=== PATIENT | male | born 1960 | race Caucasian/White ===

== ENCOUNTER 2021-04-19 15:49 | Inpatient (IN) | payer BC, SELFPAY ==
[2021-04-19] VITALS (33 sets, daily range): BP systolic 100–125; BP diastolic 60–82; PULSE 67–85; RESP 10–21; TEMP 36.4–36.8; O2SAT 92–100; BMI 32.1
--- NOTE | ~2021-04-19 | XR_ITS ---
XR chest 2V DATE: 04/19/2021 16:22 INDICATION: Generalized chest pain. History of atrial fibrillation. TECHNIQUE: PA and lateral views COMPARISON: None FINDINGS: Normal heart size. No hilar or mediastinal enlargement. No pulmonary infiltrate or consolid ation, pleural effusion or pulmonary congestion or pneumothorax. Mild degenerative spurring of the thoracic spine. IMPRESSION: No active cardiopulmonary disease Reviewed, dictated and finalized at location A.
--- NOTE | 2021-04-19 16:04 | ECG_ITS ---
Measurements Intervals [place] Rate: 72 P: 37 [place]: 172 QRS: -43 QRSD: 98 T: 90 QT: 379 QTc: 415 Interpretive Statements SINUS RHYTHM LEFT AXIS DEVIATION BORDERLINE ST-T WAVE ABNORMALITY- ANT/HIGH LAT LEADS BASELINE ARTIFACT- I, II, III, AVR, AVL, AVF, V2-V6 BORDERLINE ECG Electronically Signed On 04-19-2021 18:44:38 CDT by Manpreet Sorenson D.O.
[2021-04-19 16:15] LABS: Basophils Percent Auto 0.3 % (0.2-1.2); Eosinophils Percent Auto 0.3 % (0-4.4); Hematocrit 50.6 % (42.0-52.0); Hemoglobin 17.2 g/dL (14.0-18.0); Immature Granulocyte Absolute 0.11 K/mm3 (0.00-0.031); Immature Granulocyte Percent A 0.8 % (0-0.5); Lymphocytes Absolute Auto 1.74 K/mm3 (0.9-3.2); Lymphocytes Percent Auto 11.9 % (18.3-44.2); Mean Corpuscular Hemoglobin 30.2 pg (26-34); Mean Corpuscular Volume 88.8 fl (80-100); Mean Platelet Volume 9.9 fl (7.4-10.4); Monocytes Absolute Auto 1.2 K/mm3 (0.1-0.6); Monocytes Percent Auto 8.2 % (2.6-8.5); Neutrophils Absolute Auto 11.5 K/mm3 (1.3-6.7); Neutrophils Percent Auto 78.5 % (45.5-73.1); Platelet Count Result 346 k/mm3 (150-375); Red Cell Distribution Width 13.3 % (11.5-14.5); White Blood Count 14.6 K/mm3 (4.5-10.0)
[2021-04-19 16:25] LABS: Anion Gap 8 mmol/L (8-16); Blood Urea Nitrogen 13 mg/dL (9-20); Calcium 9.6 mg/dL (8.4-10.2); Carbon Dioxide 30 mmol/L (22-30); Chloride 98 mmol/L (98-107); Estimated Glomerular Filt Rate > 60; Glucose 190 mg/dL (75-110); Potassium 4.5 mmol/L (3.4-5.0); Sodium 136 mmol/L (137-145)
[2021-04-19 16:30] LABS: Prothrombin Time 13.4 Seconds (11.1-14.7)
[2021-04-19 16:31] LABS: Partial Thromboplastin Time 31.1 SECONDS (22.3-36.8)
[2021-04-19] MEDS: SODIUM CHLORIDE 0.9% IV 1,000 ML 150 ML IV CONT (16:31)
[2021-04-19] MEDS: NITROGLYCERIN SL 0.4 MG TABLET SUBLINGUAL (16:31)
[2021-04-19] MEDS: ASPIRIN 81 MG CHEWABLE TABLET 324 MG PO (16:31)
[2021-04-19] MEDS: ONDANSETRON INJ 4 MG/2 ML VIAL IV PUSH ×2 (17:07→20:30)
[2021-04-19] MEDS: MORPHINE SULFATE (*CRX) 4 MG/ML INJ IV PUSH ×2 (17:07→20:32)
--- NOTE | 2021-04-19 17:13 | ECG_ITS ---
Measurements Intervals [place] Rate: 74 P: 35 [place]: 168 QRS: -58 QRSD: 93 T: 56 QT: 382 QTc: 426 Interpretive Statements SINUS RHYTHM LEFT ANTERIOR FASCICULAR BLOCK BORDERLINE ST-T WAVE ABNORMALITY- ANTERIOR LEADS BASELINE ARTIFACT- II, III, V2 ABNORMAL ECG Electronically Signed On 04-19-2021 18:46:07 CDT by Manpreet Sorenson D.O.
--- NOTE | 2021-04-19 17:42 | ED.CHESTPAIN ---
HPI - Chest Pain General Chief Complaint: Chest Pain Stated Complaint: achy, chest pressure Time Seen by Provider: 04/19/21 16:16 Source: patient Mode of arrival: ambulatory Limitations: no limitations History of Present Illness HPI narrative: 61-year-old with a history of A. fib presently not on any anticoagulant here with complaints of chest pain for past 4 days. Patient states I have a car sitting on my chest . He denies any shortness of breath, nausea or vomiting or diaphoresis with the pain. He denies any previous coronary artery disease. She states that he had a stress test approximately 4 years ago at [facility]. 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 MD complaint: chest heaviness Onset (ago): day(s) (4) Timing of current episode: constant Prior episodes: No Onset: during rest Pain location: substernal Pain radiation: none Quality: heaviness Relieving factors: nothing Exacerbating factors: nothing Risk Factors Coronary artery disease risk factors: none Thoracic aortic dissection risk factors: none Related Data Allergies Allergy/AdvReac Type Severity Reaction Status Date / Time No Known Allergies Allergy Unverified 11/23/13 08:59 Review of Systems Review of Systems: All systems reviewed & are unremarkable except as noted in HPI and below Constitutional: Constitutional: Reports no additional constitutional complaints Eyes: Eyes: Reports no additional eye complaints ENT: Reports system reviewed and no additional complaints, except as documented Cardiovascular: Cardiovascular: Reports as per HPI Respiratory: Respiratory: Reports no additional respiratory complaints Gastrointestinal: Gastrointestinal: Reports no additional gastrointestinal complaints Musculoskeletal: Musculoskeletal: Reports no additional musculoskeletal complaints Neurologic: Reports system reviewed and no additional complaints, except as documented Exam Narrative: Exam Narrative: GENERAL: Well-appearing, well-nourished, and in no acute distress. HEAD: Normocephalic, atraumatic. EYES: PERRLA and EOMI NECK: Supple. CHEST: Clear to auscultation. No respiratory distress. HEART: Regular rate and rhythm. No murmur heard. Normal peripheral pulses. ABDOMEN: Soft, nontender, nondistended, normal active bowel sounds. EXTREMITIES: Normal range of motion. No edema. SKIN: Warm, dry, no rash. NEURO: No focal deficits. Alert and oriented x3. PSYCH: Normal mood and affect. Course Course Emergency Course: Patient feeling much better after 3 nitro and morphine. I did inform him about his lab work and EKG findings patient was initially reluctant to get admitted after the results patient agreed to stay. I discussed with Dr. Lam agreed to consult the patient. Vital Signs Vital signs: Vital Signs Pulse Rate 71 04/19/21 16:06 Respiratory Rate 12 04/19/21 16:06 Pulse Oximetry 97 04/19/21 16:06 Temperature 36.4 C 04/19/21 16:25 Pulse Rate 75 04/19/21 17:34 Respiratory Rate 20 04/19/21 17:34 Blood Pressure 100/60 04/19/21 17:34 Pulse Oximetry 96 04/19/21 17:34 MDM - Chest Pain Lab Data Result diagrams: 04/19/21 16:09 04/19/21 16:09 Labs: Lab Results 04/19/21 04/19/21 04/19/21 Range/Units 16:09 16:09 16:09 WBC 14.6 H (4.5-10.0) K/mm3 RBC 5.70 (4.6-6.20) M/mm3 Hgb 17.2 (14.0-18.0) g/dL Hct 50.6 (42.0-52.0) % MCV 88.8 (80-100) fl MCH 30.2 (26-34) pg MCHC 34.0 (32-36) g/dl RDW 13.3 (11.5-14.5) % Plt Count 346 (150-375) k/mm3 MPV 9.9 (7.4-10.4) fl Immature Gran % (Auto) 0.8 H (0-0.5) % Neut % (Auto) 78.5 H (45.5-73.1) % Lymph % (Auto) 11.9 L (18.3-44.2) % [place] % (Auto) 8.2 (2.6-8.5) % Eos % (Auto) 0.3 (0-4.4) % Baso % (Auto) 0.3 (0.2-1.2) % Lymph # (Auto) 1.74 (0.9-3.2) K/mm3 [place] # (Auto) 1.2 H (0.1-0.6) K/mm3 Eos # (Auto) 0.0 (0-0.3) K/mm3 Baso
[2021-04-19] MEDS: ENOXAPARIN 100 MG/ML SYRINGE 110 MG SUB-Q (18:06)
[2021-04-19] MEDS: METOPROLOL TARTRATE 50 MG TAB PO (18:16)
[2021-04-19] MEDS: NITROGLYCERIN OINTMENT 1 INCH DOSE TRANSDERM (18:16)
--- NOTE | 2021-04-19 19:50 | ADMGEN ---
This patient, Angel Lopez, was admitted to IMU Room 211-01. Patient/family oriented to hospital policies and general routines including ID bracelet, bed and alarms, visiting hours, pain management, procedures, bathroom and other care routines, personal items, smoking policy, room service/diet, and visiting hours. Information on how to activate the Rapid Response Team has been discussed. Patient/Family are encouraged to report perceived risks to care and to ask questions if they do not understand what they are told or what they should do.
[2021-04-19] MEDS: SODIUM CHLORIDE 0.9% IV 1,000 ML 75 ML IV CONT (20:35)
--- NOTE | 2021-04-19 20:46 | PM.IMHP ---
H&P: HPI History of Present Illness Date/Time: 04/19/21 20:46 this is a 61-year-old male patient who stated that he started to have some chest discomfort on night. He said it lasted through the night on into Wednesday and then now in today. The patient stated that he felt this heaviness as if a car was sitting on his chest. The patient stated that he has had chest pain before that is only last about 10 minutes and would come and go but this was pretty persistent and was midsternal. It did not radiate down his arm rope his neck. The patient did not become diaphoretic or nauseated. The patient stated that he has a history of AFib and no longer takes any anticoagulation due to insurance cost of the medication. The patient is in a sinus rhythm but has a left bundle branch block. When I initially saw the patient the ER he was refusing to stay. However since his troponin came back over 17 then he was willing to stay. Patient stated I have a car sitting on on my chest . The patient stated that he had a stress test approximately 4 years ago at [facility]. 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 His baseline troponin was found to be 19.2. Second troponin was 22.3. Cardiology has been consulted and is aware of the 2nd troponin. Was given an aspirin, nitro, Zofran, Lovenox, metoprolol, and morphine in the emergency room. The patient is being admitted to inpatient services on the date of service of 04/19/2021. Chief Complaint: Chest pain Review of Systems Review of Systems: All systems reviewed & are unremarkable except as noted in HPI and below Constitutional: Constitutional: Reports as per HPI and Reports no additional constitutional complaints Eyes: Eyes: Reports as per HPI and Reports no additional eye complaints ENT: Reports system reviewed and no additional complaints, except as documented and Reports Normal hearing present Cardiovascular: Cardiovascular: Reports no additional cardiovascular complaints Respiratory: Respiratory: Reports no additional respiratory complaints and Reports no additional respiratory complaints Gastrointestinal: Gastrointestinal: Reports as per HPI and Reports no additional gastrointestinal complaints Musculoskeletal: Musculoskeletal: Reports no additional musculoskeletal complaints Integumentary/Breasts: Skin/Breast: Reports system reviewed and no additional complaints, except as docu and Reports as per HPI Neurologic: Reports system reviewed and no additional complaints, except as documented, Reports as per HPI and Reports Normal hearing present Psychiatric: Psychiatric: Reports no additional psychiatric complaints and Reports as per HPI Endocrine: Endocrine: Reports no additional endocrine complaints Hematologic/Lymphatic: Hematologic/Lymphatic: Reports no additional hematologic/lymphatic complaints Allergic/Immunologic: Allergic/Immunologic: Reports no additional allergic/immunologic complaints [facility] Past Medical History Medical History (Updated 04/19/21 @ 21:04 by Janet Johnson NP) Atrial fibrillation Pilar cyst Extracted Tobacco abuse Surgical History Surgical History (Updated 04/19/21 @ 20:53 by Janet Johnson NP) History of tracheostomy Family History Family History (Updated 04/19/21 @ 20:54 by Janet Johnson NP) Mother Cancer Father Cancer Malignant neoplasm of prostate Social History Social History (Updated 04/19/21 @ 20:55 by Janet Johnson NP) Social History: The patient continues to smoke a half a pack to a pack a cigarettes a day. 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 He does not use any alcohol marijuana or illicit drugs. The patient is and he has 2 children. Smoking packs per day: 1 Smoking cigarettes per day: 20.0 Years smoked: 50 Smoking pack-years: 50.00 Smoking status: Current every day smoker Tobacco type: ciga
[2021-04-19] MEDS: ROSUVASTATIN 10 MG TABLET PO (20:50)
[2021-04-19] MEDS: FAMOTIDINE 20 MG/2 ML VIAL IV PUSH (20:50)
[2021-04-20] VITALS (17 sets, daily range): BP systolic 105–113; BP diastolic 59–71; PULSE 70–92; RESP 16–20; TEMP 36.3–37; O2SAT 96–97
[2021-04-20] MEDS: NITROGLYCERIN OINTMENT 1 INCH DOSE TRANSDERM ×5 (00:40→23:28)
[2021-04-20] MEDS: ENOXAPARIN 120 MG/0.8 ML SYRINGE 110 MG SUB-Q (06:04)
[2021-04-20 06:41] LABS: Basophils Percent Auto 0.3 % (0.2-1.2); Eosinophils Percent Auto 0.2 % (0-4.4); Hematocrit 45.5 % (42.0-52.0); Hemoglobin 15.2 g/dL (14.0-18.0); Immature Granulocyte Absolute 0.08 K/mm3 (0.00-0.031); Immature Granulocyte Percent A 0.7 % (0-0.5); Lymphocytes Absolute Auto 2.08 K/mm3 (0.9-3.2); Lymphocytes Percent Auto 17.3 % (18.3-44.2); Mean Corpuscular HGB Conc 33.4 g/dl (32-36); Mean Corpuscular Volume 89.7 fl (80-100); Monocytes Absolute Auto 1.4 K/mm3 (0.1-0.6); Monocytes Percent Auto 11.5 % (2.6-8.5); Neutrophils Absolute Auto 8.4 K/mm3 (1.3-6.7); Platelet Count Result 281 k/mm3 (150-375); Red Blood Count 5.07 M/mm3 (4.6-6.20); Red Cell Distribution Width 13.4 % (11.5-14.5)
[2021-04-20 06:45] LABS: Anion Gap 7 mmol/L (8-16); Blood Urea Nitrogen 12 mg/dL (9-20); Calcium 8.5 mg/dL (8.4-10.2); Carbon Dioxide 27 mmol/L (22-30); Chloride 102 mmol/L (98-107); Cholesterol 213 mg/dL (0-200); Estimated CRCL calculation 80 ml/min; Estimated Glomerular Filt Rate > 60; Glucose 160 mg/dL (75-110); HDL Direct 29 mg/dL; Magnesium 1.9 mg/dL (1.6-2.3); Potassium 4.3 mmol/L (3.4-5.0); Sodium 136 mmol/L (137-145); Triglycerides 156 mg/dL (<150)
[2021-04-20 06:56] LABS: LDL Cholesterol Direct 129 mg/dL
[2021-04-20 08:03] LABS: Thyroid Stimulating Hormone Reflex 0.964 uIU/mL (0.465-4.68)
[2021-04-20] MEDS: METOPROLOL SUCCINATE EXT REL 50 MG TABCR PO (08:07)
[2021-04-20] MEDS: ROSUVASTATIN 10 MG TABLET PO (08:07)
[2021-04-20] MEDS: FAMOTIDINE 20 MG/2 ML VIAL IV PUSH ×2 (08:07→20:17)
[2021-04-20] MEDS: SODIUM CHLORIDE 0.9% IV 1,000 ML 75 ML IV CONT ×2 (08:07→20:16)
[2021-04-20] MEDS: ASPIRIN 81 MG CHEWABLE TABLET PO (08:07)
--- NOTE | 2021-04-20 09:05 | PM.IMPN ---
Progress Note: A&P Assessment and Plan (1) Acute non-ST elevation myocardial infarction (NSTEMI): Code(s): I21.4 - Non-ST elevation (NSTEMI) myocardial infarction Status: Acute Assessment and Plan: Continue with subcutaneous Lovenox. Continue to trend tropeolins. Continue with a daily aspirin. The patient was placed on metoprolol. Cardiology has been consulted. Continue with nitroglycerin and morphine. Stable examination at present. Will continue current plan of care and treatment. (2) Tobacco abuse: Code(s): Z72.0 - Tobacco use Status: Chronic Assessment and Plan: I discussed the the importance of smoking cessation and explained I am unable to give him a nicotine patch extension as a cause some basal constriction. We discussed smoking cessation for approximately 5 minutes. Patient agreed and will try to quit smoking. Subjective Date/time seen: 04/20/21 09:05 Patient was seen during the morning rounds today. At present patient denies any chest pain or shortness of breath. No nausea, no vomiting. Mood stable. Review of Systems Review of Systems: All systems reviewed & are unremarkable except as noted in HPI and below Constitutional: Constitutional: Reports as per HPI and Reports no additional constitutional complaints Eyes: Eyes: Reports as per HPI and Reports no additional eye complaints ENT: Reports system reviewed and no additional complaints, except as documented and Reports Normal hearing present Cardiovascular: Cardiovascular: Reports no additional cardiovascular complaints Respiratory: Respiratory: Reports no additional respiratory complaints and Reports no additional respiratory complaints Gastrointestinal: Gastrointestinal: Reports as per HPI and Reports no additional gastrointestinal complaints Musculoskeletal: Musculoskeletal: Reports no additional musculoskeletal complaints Integumentary/Breasts: Skin/Breast: Reports system reviewed and no additional complaints, except as docu and Reports as per HPI Neurologic: Reports system reviewed and no additional complaints, except as documented, Reports as per HPI and Reports Normal hearing present Psychiatric: Psychiatric: Reports no additional psychiatric complaints and Reports as per HPI Endocrine: Endocrine: Reports no additional endocrine complaints Hematologic/Lymphatic: Hematologic/Lymphatic: Reports no additional hematologic/lymphatic complaints Allergic/Immunologic: Allergic/Immunologic: Reports no additional allergic/immunologic complaints Exam Const: General: cooperative, healthy appearing, comfortable, no acute distress, well developed, alert, awake and Physically active Nutritional Appearance: average body habitus and well nourished Orientation/consciousness: oriented to person, oriented to place, oriented to time and patient oriented x3 Limitations: no limitations HENMT: Head: normal to inspection, No palpable skull fracture present, normocephalic and atraumatic Ears: hearing grossly normal bilaterally and external ears normal General nose exam: Normal external nose present and Normal nares present Eyes: General: appearance normal, both eyes and all related structures Alignment and Position: alignment normal Periorbital: periorbital findings normal Eyelids: eyelids normal Conjunctivae: conjunctivae normal Sclera: sclerae normal Cornea: corneas normal Pupils: Equal, round and reactive pupils present EOM: EOMs intact bilaterally Neck: Neck: normal visual inspection, full ROM, no lymphadenopathy, trachea midline and supple Chest: Chest palpation & inspection: normal inspection of the chest Resp: Effort & Inspection: normal respiratory effort Auscultation: clear to auscultation bilaterally Percussion: percussion normal Cardio: Palpation: normal PMI Rate: regular rate Rhythm: regular rhythm Heart sounds: S1 normal heart sound present and S2 normal heart sound present Peripheral pulses: Peripheral pulses 2+
--- NOTE | 2021-04-20 09:28 | PC.NURSE ---
Cardiopulmonary Rehab Services flyer was given to patient in cardiac admission folder.
--- NOTE | 2021-04-20 09:59 | PM.CNCAR ---
Assessment and Plan Additional Plan 61-year-old white male longstanding smoker who presents with evidence of acute myocardial infarction. Patient presented far outside the window of the benefit of going to the label maker emergently last night. He feels stable this morning I have placed him on aspirin, beta-blockers, nitrates statins and anticoagulation with Lovenox. I would recommend proceeding with coronary angiography tomorrow morning to delineate his coronary artery disease and guide recommendations for long-term management. He understands the procedure it has been explained in detail and is agreeable to proceed. I will stop the Lovenox after tonight's dose. Angel Lam MD [facility] History of Present Illness History of Present Illness Consult date/time: 04/20/21 09:59 Consult reason: chest pain Reason For Visit: NSTEMI Narrative: This is a 61-year-old man I am seeing at the request of the hospitalist he was admitted yesterday evening after being seen in the emergency room with a diagnosis of non ST elevation [place]. The patient says that she is not previously been known to have any trouble with coronary artery disease. He did have a history of atrial fibrillation which was treated a number years ago at another hospital. He was not compliant with her medication or follow-up with the food assembler that saw him at that time and does not have any other cardiac history until now. He is in his usual state of what he considers to be good health when on of this past week he started to have chest pain. This started on evening and he describes it as a dull weight like sensation in the center substernal region this heavy weight like pain persisted night through the night all day Wednesday and all day yesterday he finally came in the emergency room to have it evaluated last night. He did not notice any associated diaphoresis nausea vomiting or shortness of breath. His electrocardiogram in the emergency room shows sinus rhythm with anterior ST segment depression his troponin level was significantly elevated at 19 making it obvious that he had sustained a myocardial infarction. I was then consulted on the telephone. It was obvious that the patient was presenting far too late to be considered a candidate for emergency revascularization and he was also a rendered free of pain with nitrates in the emergency department. I am seeing him this morning in the IMU. He is free of any symptoms like this now he just feels like he is ill with a cold this morning. His cardiac rhythm has been fine he has not had any dysrhythmias or complications thus far. Patient does have a longstanding history of cigarette smoking he otherwise denies hypertension diabetes or dyslipidemia. There is no family history of premature ischemic heart disease Review of Systems Constitutional: Constitutional: Reports no additional constitutional complaints Eyes: Eyes: Reports no additional eye complaints ENT: Reports system reviewed and no additional complaints, except as documented Cardiovascular: Cardiovascular: Reports as per HPI Respiratory: Respiratory: Reports no additional respiratory complaints Gastrointestinal: Gastrointestinal: Reports no additional gastrointestinal complaints Musculoskeletal: Musculoskeletal: Reports no additional musculoskeletal complaints Integumentary/Breasts: Skin/Breast: Reports system reviewed and no additional complaints, except as docu Neurologic: Reports system reviewed and no additional complaints, except as documented Endocrine: Endocrine: Reports no additional endocrine complaints Hematologic/Lymphatic: Hematologic/Lymphatic: Reports no additional hematologic/lymphatic complaints Allergic/Immunologic: Allergic/Immunologic: Reports no additional allergic/immunologic complaints PMFSH Past Medical History Medical History (Updated 04/19/21 @ 21:04 by Janet Johnson NP) Atrial fibrillation Pilar cyst Extracted Toba
[2021-04-21] VITALS (33 sets, daily range): BP systolic 103–129; BP diastolic 66–92; PULSE 68–95; RESP 13–23; TEMP 36–36.7; O2SAT 96–100
[2021-04-21] MEDS: ROSUVASTATIN 10 MG TABLET PO (08:30)
[2021-04-21] MEDS: ASPIRIN 81 MG CHEWABLE TABLET PO (08:30)
[2021-04-21] MEDS: FAMOTIDINE 20 MG/2 ML VIAL IV PUSH ×2 (08:30→20:53)
--- NOTE | 2021-04-21 08:35 | WPDMODSED ---
Moderate Sedation Note-Pt Data Patient Data Diagnosis: Non ST-elevation [place] Present Complaint: chest pain Procedure to be performed/Plan: left heart catheterization Allergies Allergy/AdvReac Type Severity Reaction Status Date / Time No Known Allergies Allergy Unverified 11/23/13 08:59 Home Medications Medication Instructions Recorded Confirmed Type aspirin 81 mg PO DAILY 04/19/21 04/19/21 History Current Medications: Active Medications Acetaminophen (Acetaminophen 325 Mg Tablet) 650 mg PO Q4H PRN PRN Reason: Mild Pain (1-3) or Fever Aspirin (Aspirin 81 Mg Chewable Tablet) 81 mg PO DAILY@0800 [facility] Last Admin: 04/21/21 08:30 Dose: 81 mg Documented by: Famotidine (Famotidine 20 Mg/2 Ml Vial) 20 mg IV PUSH Q12HR [facility] Last Admin: 04/21/21 08:30 Dose: 20 mg Documented by: Sodium Chloride (Normal Saline Iv) 1,000 mls @ 75 mls/hr IV CONT .[id number] [facility] Last Admin: 04/20/21 20:16 Dose: 75 mls/hr Documented by: Metoprolol Succinate (Metoprolol Succinate Ext Rel 50 Mg Tabcr) 50 mg PO [facility] Last Admin: 04/20/21 08:07 Dose: 50 mg Documented by: Morphine Sulfate (Morphine Sulfate (*Crx) 4 Mg/Ml Inj) 4 mg IV PUSH Q2H PRN PRN Reason: Pain Rated 7-10 Last Admin: 04/19/21 20:32 Dose: 4 mg Documented by: Nitroglycerin (Nitroglycerin Ointment 1 Inch Dose) 1 inch TRANSDERM Q6HR [facility] Last Admin: 04/21/21 05:54 Dose: Not Given Documented by: Nitroglycerin (Nitroglycerin Sl 0.4 Mg Tablet) 0.4 mg SUBLINGUAL Q5MIN PRN PRN Reason: Chest Pain Ondansetron HCl (Ondansetron Inj 4 Mg/2 Ml Vial) 4 mg IV PUSH Q4H PRN PRN Reason: Nausea Last Admin: 04/19/21 20:30 Dose: 4 mg Documented by: Rosuvastatin Calcium (Rosuvastatin 10 Mg Tablet) [facility] [place] [facility] Admin: 04/21/21 08:30 Dose: 10 mg Documented by: Sedation/Anesthesia: No previous sedation/anesthesia problems (including family history). [facility] Past Medical History Medical History (Updated 04/19/21 @ 21:04 by Janet Johnson NP) Atrial fibrillation Pilar cyst Extracted Tobacco abuse Surgical History Surgical History (Updated 04/19/21 @ 20:53 by Janet Johnson NP) History of tracheostomy Family History Family History (Updated 04/19/21 @ 20:54 by Janet Johnson NP) Mother Cancer Father Cancer Malignant neoplasm of prostate Social History Social History (Updated 04/19/21 @ 20:55 by Janet Jhonson NP) Social History: The patient continues to smoke a half a pack to a pack a cigarettes a day. 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 He does not use any alcohol marijuana or illicit drugs. The patient is and he has 2 children. Smoking packs per day: 1 Smoking cigarettes per day: 20.0 Years smoked: 50 Smoking pack-years: 50.00 Smoking status: Current every day smoker Tobacco type: cigarettes Alcohol intake: former Substance use: never Gender identity (if verbalized by the patient): Male Spiritual care concerns: No Mod Sed Physical Exam Physical Exam Pre Procedural Exam: Normal: Throat, Airway, Lungs, Heart Size, Heart Rate, Heart Rhythm, Neuro Exam and Extremities and Variation: Appearance ( unkempt overweight white male no distress) Hours since solid foods: 12 Hours since liquid intake: 12 Internal Medicine - PN: Obj Da Vital Signs Vital Signs: Vital Signs - 24 hr 04/20/21 09:51 04/20/21 11:58 04/20/21 12:00 Temperature 37.0 C Pulse Rate 74 79 77 Respiratory Rate 18 Blood Pressure 107/63 Pulse Oximetry 97 04/20/21 13:51 04/20/21 15:49 04/20/21 16:00 Temperature 36.7 C Pulse Rate 72 83 70 Respiratory Rate 18 Blood Pressure 113/68 Pulse Oximetry 97 04/20/21 18:00 04/20/21 20:00 04/20/21 22:00 Temperature 36.3 C L Pulse Rate 72 73 82 Respiratory Rate 20 Blood Pressure 110/70 Pulse Oximetry 96 04/21/21 00:00 04/21/21 02:00 04/21/21 04:00 Temperature 36.4 C
--- NOTE | 2021-04-21 10:24 | ECG_ITS ---
Measurements Intervals [place] Rate: 75 P: 50 VT: 182 QRS: -70 QRSD: 97 T: 83 QT: 359 QTc: 401 Interpretive Statements SINUS RHYTHM LEFT ANTERIOR FASCICULAR BLOCK INFERIOR INFARCT, AGE INDETERMINATE BORDERLINE ST-T WAVE ABNORMALITY- ANT/HIGH LAT LEADS ABNORMAL ECG Electronically Signed On 04-21-2021 16:15:28 CDT by Manpreet Sorenson D.O.
--- NOTE | 2021-04-21 10:28 | WPDCARDPROC ---
Cardiac Cath Procedure Note Date of procedure:: 04/21/21 Performing physician:: Angel Lam MD Indication:: non ST-elevation KS Brief clinical history:: this is a 61-year-old man who presented to the hospital at the end of last week a 48 hours after having chest pain and had significantly elevated troponin upon arrival. He became free of symptoms following treatment in the emergency room. No previous history of coronary disease. He is a longstanding smoker. In this setting he is being brought today for angiography. Procedure Procedure performed:: Coronary angiography left ventriculography PCI to the circumflex Sedation/Medication given:: fentanyl 50 mg Versed 2 mg case start time 9:27 a.m. case end time 10:21 a.m. sedation provided by Kenia Hairston RN, trained observer Access site:: right femoral artery Estimated blood loss:: 20-30 cc Procedure note:: patient was brought to the cardiac catheterization lab in the postabsorptive state where the right femoral triangle was prepared and draped in the usual fashion. Anesthesia was provided with 1% lidocaine infiltrated locally. Using the modified Seldinger technique a 5 Guyanese sheath was placed into the femoral artery after this left heart catheterization was carried out. A 5 Guyanese angled pigtail catheter was used to measure left-sided hemodynamics and to injected LV g in the THOMPSON projection. Following this a 5 Guyanese FL4 catheter was used to engage and inject the left coronary artery in multiple projections. A 5 Guyanese JR4 catheter was then used to engage inject the right coronary artery. After this the cineangiograms were reviewed and PCI of the circumflex was recommended and carried out as detailed below. Following PCI the catheters were removed the sheath was sutured into position the patient was maintained on intravenous Angiomax for systemic anticoagulation and intravenous Integrilin was started with intention to infuse this for 18 hours following PCI. 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 Findings:: Hemodynamics: Central aortic pressure was 115 over 58 left ventricle 115/0 end-diastolic 16. No gradient on pullback across the aortic valve. Left ventricle: Left ventricle is normal in size the posterior segment is akinetic the remainder of the LV contracts well global ejection fraction is 45-50%. The left main coronary artery is nicely patent the LAD is a moderate caliber artery extending down to and around the apex. The LAD has proximal moderate atherosclerotic disease in a diffuse fashion bridging over a major diagonal branch. The LAD in this area has about 50-60% stenosis with CARLOS 3 flow in the vessel. There is also moderate 60% stenosis in the diagonal branch. The circumflex is a large caliber vessel. A very proximal OM1 branch is nicely patent. Distal to this the circumflex is 99% occluded with slow CARLOS 1 flow after this segment. This appears to be the culprit for the patient's presentation. The right coronary artery is large in caliber and dominant to the posterior circulation. Right coronary artery has diffuse atherosclerotic plaquing but no flow-limiting disease is identified. Intervention: The left coronary artery was engaged using a 6 Guyanese CLS 3.5 guiding catheter. A 0.14 BMW guidewire was used to traverse the proximal subtotal occlusion of the circumflex after the OM branch. The wire was placed easily into the distal circumflex. This area was then pre-dilated using a 3.0 x 15 mm emerge balloon. Following this there was good CARLOS 3 flow in the remainder of the circumflex there was a huge amount of thrombus that was now visible distal to the high-grade lesion. The balloon was withdrawn and I then used a export thrombectomy extraction catheter and made several passes emptying clot from the vessel a large amount of clot was successfully extracte
[2021-04-21] MEDS: ONDANSETRON INJ 4 MG/2 ML VIAL IV PUSH (11:25)
--- NOTE | 2021-04-21 11:33 | PM.IMPN ---
Progress Note: A&P Assessment and Plan (1) Acute non-ST elevation myocardial infarction (NSTEMI): Code(s): I21.4 - Non-ST elevation (NSTEMI) myocardial infarction Status: Acute Assessment and Plan: Continue with subcutaneous Lovenox. Continue to trend tropeolins. Continue with a daily aspirin. The patient was placed on metoprolol. Cardiology has been consulted. Continue with nitroglycerin and morphine. Stable examination at present. Will continue current plan of care and treatment, scheduled for catheterization today (2) Tobacco abuse: Code(s): Z72.0 - Tobacco use Status: Chronic Assessment and Plan: I discussed the the importance of smoking cessation and explained I am unable to give him a nicotine patch extension as a cause some basal constriction. We discussed smoking cessation for approximately 5 minutes. Patient agreed and will try to quit smoking. 04/21/21: Will continue current plan of care and treatment. Scheduled for cardiac catheterization today Subjective Date/time seen: 04/21/21 11:33 Patient was seen during the morning rounds today. No shortness of breath or chest pain. No abdominal pain, no nausea, no vomiting. Mood stable. Review of Systems Review of Systems: All systems reviewed & are unremarkable except as noted in HPI and below Constitutional: Constitutional: Reports as per HPI and Reports no additional constitutional complaints Eyes: Eyes: Reports as per HPI and Reports no additional eye complaints ENT: Reports system reviewed and no additional complaints, except as documented and Reports Normal hearing present Cardiovascular: Cardiovascular: Reports no additional cardiovascular complaints Respiratory: Respiratory: Reports no additional respiratory complaints and Reports no additional respiratory complaints Gastrointestinal: Gastrointestinal: Reports as per HPI and Reports no additional gastrointestinal complaints Musculoskeletal: Musculoskeletal: Reports no additional musculoskeletal complaints Integumentary/Breasts: Skin/Breast: Reports system reviewed and no additional complaints, except as docu and Reports as per HPI Neurologic: Reports system reviewed and no additional complaints, except as documented, Reports as per HPI and Reports Normal hearing present Psychiatric: Psychiatric: Reports no additional psychiatric complaints and Reports as per HPI Endocrine: Endocrine: Reports no additional endocrine complaints Hematologic/Lymphatic: Hematologic/Lymphatic: Reports no additional hematologic/lymphatic complaints Allergic/Immunologic: Allergic/Immunologic: Reports no additional allergic/immunologic complaints Exam Const: General: cooperative, healthy appearing, comfortable, no acute distress, well developed, alert, awake and Physically active Nutritional Appearance: average body habitus and well nourished Orientation/consciousness: oriented to person, oriented to place, oriented to time and patient oriented x3 Limitations: no limitations HENMT: Head: normal to inspection, No palpable skull fracture present, normocephalic and atraumatic Ears: hearing grossly normal bilaterally and external ears normal General nose exam: Normal external nose present and Normal nares present Eyes: General: appearance normal, both eyes and all related structures Alignment and Position: alignment normal Periorbital: periorbital findings normal Eyelids: eyelids normal Conjunctivae: conjunctivae normal Sclera: sclerae normal Cornea: corneas normal Pupils: Equal, round and reactive pupils present EOM: EOMs intact bilaterally Neck: Neck: normal visual inspection, full ROM, no lymphadenopathy, trachea midline and supple Chest: Chest palpation & inspection: normal inspection of the chest Resp: Effort & Inspection: normal respiratory effort Auscultation: clear to auscultation bilaterally Percussion: percussion normal Cardio: Palpation: normal PMI Rate: regular rate Rhythm
[2021-04-21] MEDS: SODIUM CHLORIDE 0.9% IV 1,000 ML 125 ML IV CONT (13:30)
[2021-04-21] MEDS: EPTIFIBATIDE 0.75 MG/ML 75 MG/100 ML VIAL 17.7 MG IV CONT ×2 (15:30→20:54)
[2021-04-21] MEDS: PHARMACIST COMMUNICATION ORDER 1 EACH XX (16:39)
[2021-04-21] MEDS: TICAGRELOR 90 MG TABLET PO (20:53)
[2021-04-22] VITALS (10 sets, daily range): BP systolic 112–130; BP diastolic 71–79; PULSE 67–97; RESP 18–20; TEMP 36.3–36.6; O2SAT 98–100
[2021-04-22] MEDS: EPTIFIBATIDE 0.75 MG/ML 75 MG/100 ML VIAL 17.7 MG IV CONT (01:23)
--- NOTE | 2021-04-22 05:11 | ECG_ITS ---
Measurements Intervals [place] Rate: 69 P: 44 W[place]: 179 QRS: -73 QRSD: 104 T: 142 QT: 384 QTc: 414 Interpretive Statements SINUS RHYTHM LEFT ANTERIOR FASCICULAR BLOCK BORDERLINE ST-T WAVE ABNORMALITY- DIFFUSE LEADS BASELINE ARTIFACT- I, III, AVR, AVL ABNORMAL ECG Electronically Signed On 04-22-2021 11:22:06 CDT by Manpreet Sorenson D.O.
[2021-04-22] MEDS: TICAGRELOR 90 MG TABLET PO (08:08)
[2021-04-22] MEDS: ASPIRIN 81 MG CHEWABLE TABLET PO (08:08)
[2021-04-22] MEDS: FAMOTIDINE 20 MG/2 ML VIAL IV PUSH (08:08)
[2021-04-22] MEDS: ROSUVASTATIN 10 MG TABLET PO (08:08)
[2021-04-22] MEDS: METOPROLOL SUCCINATE EXT REL 50 MG TABCR PO (08:08)
--- NOTE | 2021-04-22 10:38 | PM.PNCARD ---
Progress Note: A&P Assessment and Plan (1) Acute non-ST elevation myocardial infarction (NSTEMI): Code(s): I21.4 - Non-ST elevation (NSTEMI) myocardial infarction Status: Acute Assessment and Plan: Continue beta-josé miguel, aspirin, Brilinta. I will increase his rosuvastatin at 20 mg daily. He is status post two drug-eluting stents. Okay for discharge from my perspective. Follow-up with Dr. Lam or Magali Fernando in 2-4 weeks (2) Tobacco abuse: Code(s): Z72.0 - Tobacco use Status: Chronic Assessment and Plan: Tobacco cessation is advised Subjective Date/time seen: 04/22/21 10:38 Interval history: 61-year-old admitted for ACS Date of service 04/22/2021: He is feeling much better today. No complaints of chest pain, nausea, shortness of breath. Review of Systems Constitutional: Constitutional: Reports no additional constitutional complaints Eyes: Eyes: Reports no additional eye complaints ENT: Reports system reviewed and no additional complaints, except as documented Cardiovascular: Cardiovascular: Reports as per HPI Respiratory: Respiratory: Reports no additional respiratory complaints Gastrointestinal: Gastrointestinal: Reports no additional gastrointestinal complaints Musculoskeletal: Musculoskeletal: Reports no additional musculoskeletal complaints Integumentary/Breasts: Skin/Breast: Reports system reviewed and no additional complaints, except as docu Neurologic: Reports system reviewed and no additional complaints, except as documented Endocrine: Endocrine: Reports no additional endocrine complaints Hematologic/Lymphatic: Hematologic/Lymphatic: Reports no additional hematologic/lymphatic complaints Allergic/Immunologic: Allergic/Immunologic: Reports no additional allergic/immunologic complaints Exam Const: General: comfortable and no acute distress Other: Overweight somewhat unkempt white male comfortable cooperative in no distress of any kind HENMT: Mouth: Yes moist mucous membranes Eyes: Sclera: sclerae normal Pupils: Equal, round and reactive pupils present Neck: Neck: supple and no JVD Thyroid: thyroid normal Other: Normal carotid upstrokes no bruits are audible over the neck Resp: Effort & Inspection: normal respiratory effort Auscultation: clear to auscultation bilaterally Other: No rales no rhonchi no wheezing Cardio: Rate: regular rate Rhythm: regular rhythm Other: PMI not palpable no murmur no gallop no rub. Right groin is stable without hematoma chemosis of bruit GI: Auscultation: normal bowel sounds Skin: General skin exam: normal color Neuro: Cranial nerves: Yes Equal, round and reactive pupils present Cognition (Neuro): normal cognition Extrem: General: normal to inspection Psych: Appearance: grossly normal Objective Data Vital Signs Vital Signs: Vital Signs - 24 hr 04/21/21 11:00 04/21/21 11:15 04/21/21 11:30 Temperature Pulse Rate 73 72 69 Respiratory Rate 16 16 16 Blood Pressure 120/79 109/77 112/78 Pulse Oximetry 99 99 98 04/21/21 11:45 04/21/21 12:00 04/21/21 12:30 Temperature Pulse Rate 79 71 68 Respiratory Rate 16 18 18 Blood Pressure 116/82 112/92 H 121/74 Pulse Oximetry 100 100 100 04/21/21 13:00 04/21/21 14:00 04/21/21 14:15 Temperature Pulse Rate 69 71 76 Respiratory Rate 19 16 20 Blood Pressure 113/81 116/85 123/88 Pulse Oximetry 100 100 100 04/21/21 14:20 04/21/21 14:25 04/21/21 14:30 Temperature Pulse Rate 77 79 85 Respiratory Rate 19 16 21 H Blood Pressure 123/80 128/88 129/79 Pulse Oximetry 100 98 100 04/21/21 14:35 04/21/21 14:40 04/21/21 14:45 Temperature Pulse Rate 77 73 75 Respiratory Rate 23 H 20 22 H Blood Pressure 121/80 118/74 120/83 Pulse Oximetry 99 100 100 04/21/21 15:00 04/21/21 15:15 04/21/21 15:30 Temperature Pulse Rate 79 78 86 Respiratory Rate 13 16 21 H Blood Pressure 121/79 118/73 109/78 Pulse Oximetry 100 100 98 04/21/21 1
--- NOTE | 2021-04-22 13:25 | P.DS_ITS ---
DS: Admitting Diagnosis Admitting Diagnosis Admitting Diagnosis: Chest pain, MA DS: Discharge Diagnosis Discharge Diagnosis (1) Acute non-ST elevation myocardial infarction (NSTEMI): Code(s): I21.4 - Non-ST elevation (NSTEMI) myocardial infarction Status: Acute DS: Summary Hospital Course Reason for hospitalization: Chest pain, MRI Hospital Course: 61-year-old male patient who stated that he started to have some chest discomfort on night. Non-ST elevation (NSTEMI) myocardial infarction Status: Acute Continue beta-josé miguel, aspirin, Brilinta. increase his rosuvastatin at 20 mg daily. He is status post two drug-eluting stents. Time Spent with Patient Time attestation: Total time spent providing and/or coordinating discharge se rvices: Time spent: Greater than 30 minutes Discharge Plan Discharge Consulting providers: Angel Lam Discharging Clinician: Chapincito Arreaga Patient Disposition: Home, Self-Care Activity: as tolerated Diet: heart healthy Patient Instructions: Antibiotic Form, How to Stop Smoking (DC) Stand Alone Forms: General Discharge Information Follow-up/Referrals: Angel Lam MD [Physician] - 2 Weeks Discharge Medications: New nitroglycerin [Nitrostat] 0.4 mg Tablet, Sublingual 0.4 mg sublingual Q5MIN PRN (Reason: Chest Pain) Qty: 20 RF: 0 metoprolol succinate 50 mg Tablet Extended Release 24 Hr 50 mg PO QAM Qty: 30 RF: 0 aspirin [Children's Aspirin] 81 mg Tablet,Chewable 81 mg PO DAILY@0800 Qty: 30 RF: 0 rosuvastatin [Crestor] 10 mg Tablet 20 mg PO QAM Qty: 30 RF: 0 acetaminophen [Mapap (acetaminophen)] 325 mg Tablet 650 mg PO Q4H PRN (Reason: Mild Pain (1-3) Or Fever) Qty: 30 RF: 0 Brilinta 90 mg Tablet 90 mg PO Q12HR Qty: 30 RF: 0 Discontinued aspirin 81 mg Tablet 81 mg PO DAILY RF: 0 Date of admission: 04/19/21 17:58 Primary Care Provider: WalterKashif Admitting Provider: Forrest Vale Attending physician on admission: Chapincito Arreaga Condition: Stable Quality VTE Prophylaxis VTE prophylaxis: pharmacologic ordered
== END 2021-04-22 15:16 | disposition home or self-care (01) | DRG 247 ==
LOC: ANHED 18:05 → ANHIMU 22:26
PROVIDERS: Emergency Medicine; Specialist; Admitting Provider Internal Medicine; Emergency Provider Family Medicine; PCP Internal Medicine; Visit Provider Nurse Practitioner
PROC: 4A023N7 Measurement of Cardiac Sampling and Pressure, Left Heart, Percutaneous Approach (ICD-10-PCS; CPT 93452; principal; 2021-04-21 08:30)
PROC: 027035Z Dilation of Coronary Artery, One Artery with Two Drug-eluting Intraluminal Devices, Percutaneous Approach (ICD-10-PCS; CPT 92928; 2021-04-21 08:30)
PROC: 027035Z Dilation of Coronary Artery, One Artery with Two Drug-eluting Intraluminal Devices, Percutaneous Approach (ICD-10-PCS; CPT 92973; 2021-04-21 08:30)
DX: I21.4 Non-ST elevation (NSTEMI) myocardial infarction (principal); I48.20 Chronic atrial fibrillation, unspecified; F17.210 Nicotine dependence, cigarettes, uncomplicated
CPT/HCPCS: 36415; 71046; 80048; 80061; 83735; 84443; 84484; 85025; 85610; 85730; 92973; 93005; 93458; 96361; 96374; 99291; A9270; C1725; C1757; C1769; C1874; C1887; C1894; C9600; J0461; J0583; J1327; J1644; J1650; J2250; J2270; J2405; J3010; J7030; J7040

== ENCOUNTER 2021-05-24 13:45 | Inpatient (IN) | payer BC, SELFPAY ==
[2021-05-24] VITALS (13 sets, daily range): BP systolic 127–170; BP diastolic 82–107; PULSE 68–98; RESP 12–26; TEMP 36.1–37.4; O2SAT 95–100
--- NOTE | ~2021-05-24 | CT_ITS ---
EXAMINATION: CT abdomen pelvis w con EXAM DATE: 05/24/2021 16:28 INDICATION: Hematuria. TECHNIQUE: Spiral CT of the abdomen and pelvis was performed following intravenous injection of 100 m L Omnipaque 350. Axial, coronal and sagittal images of the abdomen and pelvis were reviewed. The do se-length product (DLP) for this examination was 909.16 mGy-cm. The exposure was tailored according to patient size (auto mA exposure control), and iterative reconstruction (ASIR) was used as additiona l dose reduction technique. There is no prior study for comparison. FINDINGS: The liver, spleen, adrenal glands and pancreas are unremarkable. Multiple peripherally chung cified gallstones. No pericholecystic inflammation. Portal and splenic veins are patent. Kidneys en patrick symmetrically. There is no hydronephrosis. The prostate is unremarkable. Small inguinal fat- containing hernias. Heterogeneous material in the dependent aspect of the bladder probably blood josue t but can't exclude underlying cancer. There is diffuse bladder wall thickening consistent with cysti tis. Ross catheter in position. There is no retroperitoneal or pelvic lymphadenopathy. There is mi ld scattered arteriosclerotic disease. The appendix is normal. The stomach and small bowel are unremarkable. There is expected amount of c olonic stool. No free intraperitoneal gas. The heart is normal in size. There are no pericardial or pleural effusions. The lung bases are unremarkable. IMPRESSION: 1. Heterogeneous material dependent aspect of bladder probably blood clot. Underlying transitional ce ll cancer not excludable. Bladder wall thickening, cystitis. Ross in position. 2. Cholelithiasis. Reviewed, dictated and finalized at location A. IMPRESSION: 1. Heterogeneous material dependent aspect of bladder probably blood clot. Unde rlying transitional cell cancer not excludable. Bladder wall thickening, cystit is. Ross in position. 2. Cholelithiasis.
[2021-05-24 14:26] LABS: Add Urine Microscopic? YES; Appearance Urine Cloudy (Clear); Bacteria Urine Trace /hpf; Bilirubin Urine Negative (Negative); Blood Urine 3+ (Negative); Color Urine Red (Yellow); Glucose Urine UA 1+ mg/dL (Negative); Ketones Urine Trace mg/dL (Negative); Leukocyte Esterase Ur Negative LEU/UL (Negative); Nitrate Urine Negative (Negative); Protein Urine 2+ mg/dL (Negative); RBC Urine >75 /hpf (0-2); Specific Grav Ur 1.014 (1.001-1.035); Urobilinogen Urine Negative mg/dL (<2.0); WBC Urine >75 /hpf
--- NOTE | 2021-05-24 15:03 | ED.MALEGU ---
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 Patient denies having similar symptoms, fever, chills, nausea, vomiting, abdominal pain or lower back pain. Patient on aspirin and Brilinta. Patient is fully vaccinated over 19. Related Data Allergies Allergy/AdvReac Type Severity Reaction Status Date / Time No Known Allergies Allergy Verified 05/24/21 14:01 Review of Systems Review of Systems: Narrative: CONSTITUTIONAL: Denies fever, chills, or sweats. EYES: Denies visual changes, redness, or discharge. ENT: Denies rhinorrhea, congestion, sore throat, or otalgia. CARDIOVASCULAR: Denies chest pain, palpitations, or edema. RESPIRATORY: Denies cough or dyspnea. GASTROINTESTINAL: Denies abdominal pain, nausea, vomiting, or diarrhea. GENITOURINARY: Denies dysuria or hematuria. SKIN: Denies rash or itching. MUSCULOSKELETAL: Denies back pain, joint pain, or myalgia. NEUROLOGIC: Denies headache, numbness, or weakness. PSYCHIATRIC: Denies anxiety or depression. [facility] Past Medical History Medical History Atrial fibrillation Pilar cyst Extracted Tobacco abuse Surgical History Surgical History History of tracheostomy Family History Family History Mother Cancer Father Cancer Malignant neoplasm of prostate Social History Social History Social History: The patient continues to smoke a half a pack to a pack a cigarettes a day. 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 He does not use any alcohol marijuana or illicit drugs. The patient is and he has 2 children. Smoking packs per day: 1 Smoking cigarettes per day: 20.0 Years smoked: 50 Smoking pack-years: 50.00 Smoking status: Current every day smoker Tobacco type: cigarettes Alcohol intake: former Substance use: never Gender identity (if verbalized by the patient): Male Spiritual care concerns: No Exam Narrative: Exam Narrative: General appearance: Well-developed, well-nourished Skin: Normal color Head: Normocephalic, nontraumatic Eyes: Clear conjunctiva ENT: Oropharynx normal, ears normal, nose normal Neck: Supple, nontender Chest and respiratory: Airway patent, no respiratory distress, no accessory muscle use Heart: Regular rate/rhythm Abdomen: Soft, nontender, no organomegaly, quiet bowel sounds Vascular: Normal peripheral pulses, normal capillary refill. Musculoskeletal: Normal range of motion, nontender back Neurologic: Alert and oriented ?3, MANAGER AUDIT is normal as tested, no gross motor deficit Course Course Emergency Course: Improving Reevaluation(s) Reevaluation #1: At the time of discharge patient was leaking around the catheter. Patient was difficult to be catheterized with normal catheter, coud? catheter was used initially, difficulty irrigated, CAT scan showed some blood clots in the bladder, patient probably will benefit from admission and blood clot evacuation. The plan to admit, consult urologist. Date: 05/24/21 Time: 18:01 Consultations Consultation #1: Dr. Goodwin, urologist, Admit to hospitalist, n.p.o., Date: 05/24/21 Time: 17:59 Vital Signs V
[2021-05-24 15:35] LABS: Basophils Percent Auto 0.5 % (0.2-1.2); Eosinophils Percent Auto 0.3 % (0-4.4); Hemoglobin 14.9 g/dL (14.0-18.0); Immature Granulocyte Absolute 0.03 K/mm3 (0.00-0.031); Immature Granulocyte Percent A 0.3 % (0-0.5); Lymphocytes Absolute Auto 1.23 K/mm3 (0.9-3.2); Lymphocytes Percent Auto 14.1 % (18.3-44.2); Mean Corpuscular HGB Conc 34.7 g/dl (32-36); Mean Corpuscular Hemoglobin 30.3 pg (26-34); Mean Corpuscular Volume 87.6 fl (80-100); Mean Platelet Volume 9.8 fl (7.4-10.4); Monocytes Absolute Auto 0.5 K/mm3 (0.1-0.6); Monocytes Percent Auto 5.7 % (2.6-8.5); Neutrophils Absolute Auto 6.9 K/mm3 (1.3-6.7); Neutrophils Percent Auto 79.1 % (45.5-73.1); Platelet Count Result 255 k/mm3 (150-375); Red Blood Count 4.91 M/mm3 (4.6-6.20); Red Cell Distribution Width 13.2 % (11.5-14.5); White Blood Count 8.7 K/mm3 (4.5-10.0)
[2021-05-24 16:03] LABS: Alanine Aminotransferase 39 U/L (4-50); Albumin Level 4.3 g/dL (3.5-5.1); Alkaline Phosphatase 80 U/L (38-126); Anion Gap 11 mmol/L (8-16); Aspartate Amino Transferase 38 U/L (17-59); Bilirubin,Total 0.6 mg/dL (0.2-1.3); Blood Urea Nitrogen 12 mg/dL (9-20); Calcium 9.5 mg/dL (8.4-10.2); Carbon Dioxide 23 mmol/L (22-30); Chloride 100 mmol/L (98-107); Estimated CRCL calculation 109 ml/min; Estimated Glomerular Filt Rate > 60; Glucose 179 mg/dL (65-110); Sodium 134 mmol/L (137-145)
--- NOTE | 2021-05-24 16:17 | PC.NURSE ---
PT MOONEY CATH FLUSHED WITH 500 ML NS. 675 PINK TINGED OUTPUT WITH COUPLE PEA SIZED CLOTS NOTED. PT TOLERATED WELL.
--- NOTE | 2021-05-24 18:41 | WPDANESEPP ---
Anes - Eval Pre Procedure Procedure: Cysto with clot evacuation Date/Time: 05/24/21 18:41 Pre Op Diagnosis: blood in urine Patient Data Age: 61 Gender: M Height: 1.85 m Weight: 113.4 kg Last Vital Signs Temp 98.1 F 05/24/21 13:58 Pulse 88 05/24/21 18:39 Resp 20 05/24/21 18:39 BP 127/107 H 05/24/21 18:39 Pulse Ox 98 05/24/21 18:39 Allergies Allergy/AdvReac Type Severity Reaction Status Date / Time No Known Allergies Allergy Verified 05/24/21 14:01 Home Medications Medication Instructions Recorded Confirmed Type aspirin [Children's Aspirin] 81 mg PO DAILY@0800 #30 tablet 04/22/21 Rx metoprolol succinate 50 mg PO QAM #30 tablet 04/22/21 Rx nitroglycerin [Nitrostat] 0.4 mg SUBLINGUAL Q5MIN PRN #20 04/22/21 Rx tablet rosuvastatin [Crestor] 20 mg PO QAM #30 tablet 04/22/21 Rx ticagrelor [Brilinta] 90 mg PO Q12HR #30 tablet 04/22/21 Rx ciprofloxacin HCl [Cipro] 500 mg PO Q12H #20 tablet 05/24/21 Rx Laboratory Tests 05/24/21 05/24/21 05/24/21 14:13 15:29 15:29 WBC 8.7 K/mm3 K/mm3 (4.5-10.0) RBC 4.91 M/mm3 M/mm3 (4.6-6.20) Hgb 14.9 g/dL g/dL (14.0-18.0) Hct 43.0 % % (42.0-52.0) MCV 87.6 fl fl (80-100) MCH 30.3 pg pg (26-34) MCHC 34.7 g/dl g/dl (32-36) RDW 13.2 % % (11.5-14.5) Plt Count 255 k/mm3 k/mm3 (150-375) MPV 9.8 fl fl (7.4-10.4) Immature Gran % (Auto) 0.3 % % (0-0.5) Neut % (Auto) 79.1 % H % (45.5-73.1) Lymph % (Auto) 14.1 % L % (18.3-44.2) Hudspeth % (Auto) 5.7 % % (2.6-8.5) Eos % (Auto) 0.3 % % (0-4.4) Baso % (Auto) 0.5 % % (0.2-1.2) Lymph # (Auto) 1.23 K/mm3 K/mm3 (0.9-3.2) Hudspeth # (Auto) 0.5 K/mm3 K/mm3 (0.1-0.6) Eos # (Auto) 0.0 K/mm3 K/mm3 (0-0.3) Baso # (Auto) 0.0 K/mm3 K/mm3 (0.0-0.1) Abs Immat Gran (auto) 0.03 K/mm3 K/mm3 (0.00-0.031) Absolute Neuts (auto) 6.9 K/mm3 H K/mm3 (1.3-6.7) Absolute Nucleated RBC 0.0 K/mm3 K/mm3 (0.0-0.012) Nucleated RBC % 0.0 % % (0.0-0.2) Sodium 134 mmol/L L mmol/L (137-145) Potassium 4.0 mmol/L mmol/L (3.4-5.0) Chloride 100 mmol/L mmol/L (98-107) Carbon Dioxide 23 mmol/L mmol/L (22-30) Anion Gap 11 mmol/L mmol/L (8-16) BUN 12 mg/dL mg/dL (9-20) Creatinine 0.80 mg/dL mg/dL (0.7-1.3) Estim Creat Clear Calc 109 ml/min ml/min Estimated GFR > 60 (59 - ) Glucose 179 mg/dL H mg/dL (65-110) Calcium 9.5 mg/dL mg/dL (8.4-10.2) Total Bilirubin 0.6 mg/dL mg/dL (0.2-1.3) AST 38 U/L U/L (17-59) ALT 39 U/L U/L (4-50) Alkaline Phosphatase 80 U/L U/L (38-126) Total Protein 8.0 g/dL g/dL (6.3-8.2) Albumin 4.3 g/dL g/dL (3.5-5.1) Urine Color Red H (Yellow) Urine Appearance Cloudy H (Clear) Urine pH 6.0 (5.0-9.0) Ur Specific Rentz 1.014 (1.001-1.035) Urine Protein 2+ mg/dL H mg/dL (Negative) Urine Glucose (UA) 1+ mg/dL H mg/dL (Negative) Urine Ketones Trace mg/dL mg/dL (Negative) Ur Blood (Man) 3+ H (Negative) Urine Nitrate Negative (Negative) Urine Bilirubin Negative (Negative) Urine Urobilinogen Negative mg/dL mg/dL (<2.0) Leukocyte Esterase Rfl Negative ALANNA/UL ALANNA/UL (Negative) Urine RBC >75 /hpf H /hpf (0-2) Urine WBC >75 /hpf H /hpf Urine Bacteria Trace /hpf /hpf Patient hx anesthesia problems: none Family hx anesthesia problems: none PMFSH Past Medical History Medical History Acute non-ST elevation myocardial infarction (NSTEMI) Acute
--- NOTE | 2021-05-24 19:42 | WPDANESEFPP ---
Anes - Eval Final PreProcedure Day of Procedure 05/24/21 19:42 Patient weight: obese Heart: regular rate and rhythm Lungs: decreased breath sounds Airway: Mallampati scale class II Neurological: alert and oriented Last oral intake: >/= 8 hours ASA classification: III Emergent: yes Anesthetic plan: proceed Anesthesia type and monitoring: general LMA and standard monitoring Informed Consent: The patient's anesthetic plan and its attendant risks and benefits were discussed with the patient/family/POA. Questions were solicited and answers provided to the satisfaction of the patient/family/POA.
--- NOTE | 2021-05-24 19:47 | WPDURCON ---
Assessment and Plan Assessment and plan (1) Hematuria: Qualifiers: Hematuria type: unspecified type Qualified Code(s): R31.9 - Hematuria, unspecified Code(s): R31.9 - Hematuria, unspecified Status: Acute Assessment and Plan: Patient with urinary retention and CT findings of clot retention despite man placement. On blood thinners, current smoker. PLAN: -NPO -Hold blood thinners at this time -Admit to medicine service -- appreciate assistance with AFib management -Urgent OR add on for Cystoscopy, Clot Evacuation, Possible Fulguration -- will plan to place on CBI post-op -Due to blood thinner use, discussed that if there is a bladder tumor, a full resection will not be attempted at this time -R/B/A discussed, focusing on failure to proceed resulting in failure to unobstruct the bladder outlet and man -- patient agrees to proceed (2) Urinary tract infection: Qualifiers: Hematuria presence: with hematuria Urinary tract infection type: site unspecified Qualified Code(s): N39.0 - Urinary tract infection, site not specified; R31.9 - Hematuria, unspecified Code(s): N39.0 - Urinary tract infection, site not specified Status: Acute (3) Acute urinary retention: Code(s): R33.8 - Other retention of urine Status: Acute Urology Consult Note HPI Date Seen: 05/24/21 Primary Care Provider: Kashif Watson, Consult Narrative Narrative: Angel Lopez is a 61 year old male who presents to the ER with inability to void. Man placed in ER, and 450cc bloody urine evacuated. UA concerning for UTI so he was given Ceftriaxone with potential plan for d/c home -- however, his man stopped draining and he had urine leakage around the catheter consistent with an obstructed man. Nursing attempted to replace man with a larger bore catheter, but were unsuccessful. A Coude was placed successfully, CT AP obtained shows a fair amount of blood product still in the bladder, and the current catheter is intermittently clotting off. Patient takes Aspirin and Brilinta for Afib. Last PO was an egg sandwich at 9AM. He is a current smoker with 50 pack year history. Review of Systems Review of Systems: All systems reviewed & are unremarkable except as noted in HPI and below Constitutional: Constitutional: Reports frequent falls PMFSH Past Medical History Medical History Acute non-ST elevation myocardial infarction (NSTEMI) Acute urinary retention Atrial fibrillation Hematuria Pilar cyst Extracted Tobacco abuse Surgical History Surgical History History of tracheostomy Family History Family History Mother Cancer Father Cancer Malignant neoplasm of prostate Social History Social History Social History: The patient continues to smoke a half a pack to a pack a cigarettes a day. 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 He does not use any alcohol marijuana or illicit drugs. The patient is and he has 2 children. Smoking packs per day: 1 Smoking cigarettes per day: 20.0 Years smoked: 50 Smoking pack-years: 50.00 Smoking status: Current every day smoker Tobacco type: cigarettes Alcohol intake: former Substance use: never Gender identity (if verbalized by the patient): Male Spiritual care concerns: No Meds Home Medications and Allergies Home Medications Medication Instructions Recorded Confirmed Type aspirin [Children's Aspirin] 81 mg PO DAILY@0800 #30 tablet 04/22/21 Rx metoprolol succinate 50 mg PO QAM #30 tablet 04/22/21 Rx nitroglycerin [Nitrostat] 0.4 mg SUBLINGUAL Q5MIN PRN #20 04/22/21 Rx tablet rosuvastatin [Crestor] 20 mg PO QA
--- NOTE | 2021-05-24 19:47 | WPDHPUPDATE1 ---
History and Physical Update Update Date/Time: 05/24/21 19:47 History and Physical has been reviewed, including an updated exam of the patient. There are NO changes in the patient's condition. Risks, benefits, and alternatives have been discussed and questions answered. Patient agrees to proceed with procedure.
[2021-05-24] MEDS: LACTATED RINGERS 1,000 ML 30 ML IV CONT ×2 (21:08)
--- NOTE | 2021-05-24 21:17 | P.OP_ITS ---
Procedure Note - Detailed Date of Procedure 05/24/21 Pre-op Diagnosis Urinary Retention,Hematuria,Urinary Tract Infect Post-op Diagnosis same Procedure Performed #1) Transurethral resection of large bladder tumor (>5cm) #2) Cystoscopy, Clot evacuation #3) Urethral dilation, male, initial #4) Urethral dilation, male, subsequent Surgeon Jayce Bahena MD Anesthesia general Indications Clot retention Findings Large amount of mature clot in bladder; no false passage in prostate, large left lateral wall papillary bladder tumor; no other tumors; bilateral UO's away and uninvolved Description of Procedure Prior to the operation and informed consent was obtained. The patient was brought back to the operative suite and a detail timeout was performed. General anesthesia was induced without complication. The patient was administered IV antibiotics in the prophylactic form. The patient was positioned in the dorsal lithotomy position with close attention to all pressure points and was prepped and draped in sterile fashion. I began the case by inserting a rigid cystoscope per urethra under direct visualization to gain access into the bladder. The patient had some meatal and urethral narrowing, so I had to initially dilate with a 16Fr male urethral sound and subsequently dilate (in increments of 2Fr) up to a 30Fr. Even with this, I needed an open-ended ureteral catheter as a leading edge to accomodate the scope into the bladder. There was no urethral injury noted from his prior man placement attempts. Cystoscopy was remarkable for a large amount of mature clot. Ultimately, using a [place] syringe attached to the scope sheath, I was able to irrigated the bladder free of the clot burden using sterile water. This required changes from a 22Fr rigid sheath, to a 24Fr rigid sheath, to a 26Fr continuous flow resectoscope sheath. There was a large amount of clot in the bladder (~100-200cc) and this took awhile to evacuate. This markedly improved visualization, and allowed us to see that there was a 5- 6cm left lateral wall bladder tumor. It was papillary, mobile, and on a roughly 1cm stalk on the left lateral wall. Bilateral ureteral orifices were away and uninvolved. It was oozing blood from multiple sites. Using a large roller ball, I attempted to simply fulgurate the bladder tumor, but I could not reach the cranial most aspect of the tumor, and it quickly became clear that I would not be able to control the bleeding of the tumor with fulguration alone if he were to remain on blood thinners for his recent cardiac stent placement (within the month). Therefore, I performed a full transurethral resection of bladder tumor using loop electrocautery. I achieved a grossly complete resection, and specimens included bladder tumor and bladder tumor - deep which represented the final layers of the resection. With a complete resection, I did roller-ball fulguration of the left lateral wall resection site, which was roughly 1cm sq. There was no active bleeding at the conclusion of this step when irrigation was off and the bladder was only partially distended. I carefully withdrew the scope and placed an 24Fr 3-way man catheter with return of clear irrigant. Continuous bladder irrigation was started. I filled the balloon with 20cc sterile water. The patient tolerated the procedure well. PLAN: -PACU, floor -Patient to remain on CBI -Urologically will clear the patient to be back on his blood thinners, now that he has a complete resection -NPO at midnight, in case of need for takeback to OR on blood thinners
--- NOTE | 2021-05-24 21:18 | PM.OP ---
Procedure Note - Brief Procedure Note - Brief Date of procedure: 05/24/21 Pre-op diagnosis: Urinary Retention,Hematuria,Urinary Tract Infect Post-op diagnosis: other (Bladder Tumor) Procedure performed: #1) Transurethral resection of large bladder tumor (>5cm) #2) Cystoscopy, Clot evacuation #3) Urethral dilation, male, initial #4) Urethral dilation, male, subsequent Description of procedure: See 'Procedure Note - Detailed' Anesthesia: GETA Surgeon: Jayce Bahena MD Estimated blood loss (mL): 50 Drains: Yes (24Fr 3 way man) Pathology: yes (Bladder tumor & Bladder tumor - Deep) Complications: None Condition: stable Disposition: floor Findings: Large amount of mature clot in bladder; no false passage in prostate, large left lateral wall papillary bladder tumor; no other tumors; bilateral UO's away and uninvolved
--- NOTE | 2021-05-24 22:32 | ADMGEN ---
This patient, Angel Lopez, was admitted to 2 Medical Room 260-01. Patient/family oriented to hospital policies and general routines including ID bracelet, bed and alarms, visiting hours, pain management, procedures, bathroom and other care routines, personal items, smoking policy, room service/diet, and visiting hours. Information on how to activate the Rapid Response Team has been discussed. Patient/Family are encouraged to report perceived risks to care and to ask questions if they do not understand what they are told or what they should do.
[2021-05-24] MEDS: TICAGRELOR 90 MG TABLET PO (22:53)
--- NOTE | 2021-05-24 23:45 | PM.IMHP ---
H&P: HPI History of Present Illness Date/Time: 05/24/21 23:45 Chief Complaint: Difficulties urinating, blood in urine. Narrative: This is a pleasant 61-year-old male smoker with coronary artery disease and recent stent placement on 04/13/2021 who presented to the emergency department earlier today via private vehicle from home with reports of blood in urine and difficulties urinating. A Ross catheter was placed which yielded 450 mL of bloody urine and the plan was to discharge the patient home with follow-up however the Ross catheter stopped draining and he began to have urine leaking around the catheter concerning for obstruction. Nursing attempted to replace the Ross catheter with a large bore catheter to initiate CBI however was unsuccessful. A coude was placed successfully. Subsequent CT of the abdomen and pelvis showed blood products in the bladder and he was taken to the OR per Dr. Bahena. A large bladder tumor was noted and resected and he is being admitted in this setting. At the time my evaluation he is undergoing CBI with light pink urine in the Ross bag. He has no complaints and specifically denies fever, chills, sweats, chest pain, shortness of breath, abdominal pain, and bladder spasms. Review of Systems Review of Systems: Narrative: Twelve systems were reviewed with pertinent positives and negatives as per HPI. no fever, chills, sweats. No recent cold or flu symptoms. He denies chest pain, pleuritic pain, palpitations, shortness of breath, orthopnea, PND, and lower extremity edema. No nausea or vomiting. Weight has remained stable. He has no history of malignancy. He has cut back smoking since his recent [place]. Except as documented, all other systems were reviewed and are negative. [facility] Past Medical History Medical History Acute non-ST elevation myocardial infarction (NSTEMI) (04/19/21) Coronary artery disease Hypertension Paroxysmal atrial fibrillation Tobacco abuse Surgical History Surgical History History of cardiac catheterization (04/21/21) Drug-eluting stent x2 to the circumflex. History of removal of cyst Excision Pilar cyst. History of tracheostomy (1989) Related to critical illness due to dental abscess. Family History Family History Mother Cancer Father Cancer Malignant neoplasm of prostate Social History Social History (Updated 05/25/21 @ 01:48 by Vickie Cheney PA-C) Social History: The patient lives in [place]. He is and has 2 children. 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 He Has smoked a pack of cigarettes per day for nearly 40 years but is down to about half a pack since his stents were placed in April 2021. Recovering alcoholic, sober for over 2 decades. No illicit substance use. Code status: Full code. Meds Home Medications and Allergies Home Medications Medication Instructions Recorded Confirmed Type aspirin [Children's Aspirin] 81 mg PO DAILY@0800 #30 tablet 04/22/21 05/24/21 Rx metoprolol succinate 50 mg PO QAM #30 tablet 04/22/21 05/24/21 Rx nitroglycerin [Nitrostat] 0.4 mg SUBLINGUAL Q5MIN PRN #20 04/22/21 05/24/21 Rx tablet rosuvastatin [Crestor] 20 mg PO QAM #30 tablet 04/22/21 05/24/21 Rx ticagrelor [Brilinta] 90 mg PO Q12HR #30 tablet 04/22/21 05/24/21 Rx Allergies Allergy/AdvReac Type Severity Reaction Status Date / Time No Known Allergies Allergy Verified 05/24/21 14:01 Vital Signs Vital Signs - 24 hr 05/24/21 13:58 05/24/21 16:16 05/24/21 18:01 Temperature 98.1 F Pulse Rate 98 68 89 Respiratory Rate 18 20 20 Blood Pressure 170/100 H 139/93 H 127/107 H Pulse Oximetry 99 97 97 05/24/21 18:39 05/24/21 19:15 05/24/21 19:18 Temperature Pulse Rate 88 85 83 Respiratory Rate 20 20 20 Blood Pressure 127/107 H 128/93 H 128/93 H Pulse Oximetry 98 95 96 05/24/21 21:0
[2021-05-25] VITALS: BP 116/71; PULSE 84; RESP 14; TEMP 36.2; O2SAT 99
[2021-05-25 03:12] LABS: Hemoglobin A1C 8.3 % (<5.7)
[2021-05-25] MEDS: ROSUVASTATIN 10 MG TABLET 20 MG PO (08:39)
[2021-05-25 08:40] VITALS: PULSE 82
[2021-05-25] MEDS: METOPROLOL SUCCINATE EXT REL 50 MG TABCR PO (08:40)
[2021-05-25 08:41] LABS: Anion Gap 10 mmol/L (8-16); Blood Urea Nitrogen 12 mg/dL (9-20); Calcium 9.2 mg/dL (8.4-10.2); Carbon Dioxide 22 mmol/L (22-30); Chloride 104 mmol/L (98-107); Estimated CRCL calculation 107 ml/min; Estimated Glomerular Filt Rate > 60; Glucose 222 mg/dL (65-110); Potassium 4.2 mmol/L (3.4-5.0); Sodium 136 mmol/L (137-145)
--- NOTE | 2021-05-25 10:43 | PM.CNCAR ---
Assessment and Plan Assessment and plan (1) Hematuria: Qualifiers: Hematuria type: unspecified type Qualified Code(s): R31.9 - Hematuria, unspecified Code(s): R31.9 - Hematuria, unspecified Status: Acute Assessment and Plan: 61-year-old male with CAD, history of non ST elevation myocardial infarction status post PCI/ SAMANTHA x2 distal LCX in the setting of non ST elevation [place] on 04/21/2021; tobacco abuse. Patient presented to hospital with inability to urinate and some hematuria. Cardiology was consulted for antiplatelet management for the patient who had recent ACS and PCI/stenting of LCX using 2 drug-eluting stents. Patient is status post Transurethral resection of large bladder tumor (>5cm), Cystoscopy, Clot evacuation on 05/24/2021. Patient has urinary catheter in place, and hematuria is significantly improved. Patient has been cleared by Urology to resume antiplatelets based on the review of the note. - continue low-dose aspirin 81 mg p.o. daily; change ticagrelor to clopidogrel 75 mg p.o. daily from tomorrow after loading dose of 300 mg tonight. - continue beta-josé miguel, statin - patient is currently stable from cardiovascular standpoint and does not have any ongoing ischemic symptoms. -management of hematuria and bladder tumor as per Urology (2) Coronary artery disease: Code(s): I25.10 - Atherosclerotic heart disease of [place] coronary artery without angina pectoris Status: Acute Assessment and Plan: Management as above (3) Tobacco abuse: Code(s): Z72.0 - Tobacco use Status: Chronic Assessment and Plan: smoking cessation counseling was done History of Present Illness History of Present Illness Consult date/time: 05/25/21 10:43 DATE OF CONSULT:05/25/2021 REASON FOR CONSULT: hematuria, status post SAMANTHA REQUESTING PHYSICIAN:Vickie Cheney PA-C CHIEF COMPLAINT: Unable to void HPI: 61-year-old male with CAD, history of non ST elevation myocardial infarction status post PCI/ SAMANTHA x2 distal LCX in the setting of non ST elevation [place] on 04/21/2021; tobacco abuse. Patient has CAD, and recent history of non ST elevation [place], and PCI/stenting of LCX using 2 sirolimus eluting stents ( 3.5 x 26 mm, 4.0 x 26 mm). He has been compliant with medical regimen including dual antiplatelet therapy with aspirin and ticagrelor. He presented to [facility] ER on 05/24/2021 with complaints of inability to urinate and some hematuria. Patient denied any chest pain, shortness of breath, palpitation, dizziness or syncope. Ross Catheter was placed in ER, and 450cc bloody urine was reportedly evacuated. CT scan of the abdomen and pelvis reportedly showed Heterogeneous material dependent aspect of bladder probably blood clot; Underlying transitional cell cancer not excludable, cholelithiasis. Patient has been evaluated by Urology, and underwent Transurethral resection of large bladder tumor (>5cm), Cystoscopy, Clot evacuation on 05/24/2021. Patient has urinary catheter in place, and hematuria is significantly improved. Patient has been cleared by Urology to resume antiplatelets based on the review of the note. Patient gives history of an episode of atrial fibrillation about 5-6 years ago, at [facility]. Those medical records are not available. Patient states that he has not been on any anticoagulation in the past. He does not recall any recurrence of atrial fibrillation. Reason For Visit: Urinary Retention,Hematuria,Urinary Tract Infect Review of Systems Review of Systems: Narrative: General: Negative for fever, chills, fatigue Psychological: Negative for anxiety, depression Ophthalmic: negative for loss of vision ENT: Negative for epistaxis, headaches Allergy and immunology: Negative for hives, nasal congestion Hematologic and lymphatic: Negative for overt bleeding problems Endocrine: Negative for hot flashes, palpitations Respiratory: Negative for cough, h
[2021-05-25] MEDS: ASPIRIN 81 MG CHEWABLE TABLET PO (12:09)
--- NOTE | 2021-05-25 13:47 | WPDUROPN2 ---
Progress Note: A&P Assessment and Plan (1) Bladder tumor: Code(s): D49.4 - Neoplasm of unspecified behavior of bladder Status: Acute Assessment and Plan: Patient with gross hematuria, clot retention, after being on ASA and Brilinta for recent (<1 month) cardiac stents. Although initial UA appeared infected, patient's etiology for hematuria is consistent with a bleeding bladder tumor. PLAN: I had a long, detailed, discussion with the patient and his friend, Beatriz, that my conservative preference is for him to stay overnight, on CBI, while he transitions to his Plavix -- his urine is completely clear, off CBI at this time, with essentially no cessation of blood thinners at this point. He very much wants to go home today. I counseled them on rest, hydration, and physical findings that would prompt urgent return to the ER (fevers >101 and man not draining) -- they expressed good understanding and wish to be discharged today If cleared by other services, Urology is okay with d/c home today, with current man (CBI port will need capped and patient needs man teaching from nursing staff as well as a leg bag) -- patient prefers to see me in [place] so will arrange for a voiding trial early next week and I will see him back in the office for a path review a week after that I do not believe he needs antibiotics at discharge as I do not believe he has a UTI (2) Acute urinary retention: Code(s): R33.8 - Other retention of urine Status: Acute (3) Hematuria: Qualifiers: Hematuria type: unspecified type Qualified Code(s): R31.9 - Hematuria, unspecified Code(s): R31.9 - Hematuria, unspecified Status: Acute Subjective Subjective Date/Time Seen: 05/25/21 13:47 POD 1 - TURBT, Clot Evac, Urethral Dilation Patient feels great this AM, no issues with pain control. Urine is transparent in tubing off CBI -- in bag it is veronika colored. Nursing did not need to irrigate the man overnight. The patient is AFVSS and very much wants to go home today. He has remained on his Aspirin, and plans for him to start Plavix tonight in place of Brilinta, per cardiology. I have discussed with the patient my preference for observing him on CBI overnight while he starts his Plavix, however, he very much wants to be discharged today and reports he will have a low threshold and accept the risk of potential readmission. Review of Systems Review of Systems: All systems reviewed & are unremarkable except as noted in HPI and below Exam Const: General: cooperative, healthy appearing, comfortable and no acute distress HENMT: Head: normal to inspection, normocephalic and atraumatic Eyes: General: appearance normal, both eyes and all related structures Neck: Neck: normal visual inspection Chest: Chest palpation & inspection: normal inspection of the chest Resp: Effort & Inspection: normal respiratory effort and able to speak in complete sentences Urinary Catheter: Urinary Catheter: patent and draining and urine clear (Off CBI) Objective Data Vital Signs Vital Signs: Vital Signs - 24 hr 05/24/21 13:58 05/24/21 16:16 05/24/21 18:01 Temperature 36.7 C Pulse Rate 98 68 89 Respiratory Rate 18 20 20 Blood Pressure 170/100 H 139/93 H 127/107 H Pulse Oximetry 99 97 97 05/24/21 18:39 05/24/21 19:15 05/24/21 19:18 Temperature Pulse Rate 88 85 83 Respiratory Rate 20 20 20 Blood Pressure 127/107 H 128/93 H 128/93 H Pulse Oximetry 98 95 96 05/24/21 21:08 05/24/21 21:20 05/24/21 21:30 Temperature 37.4 C Pulse Rate 80 85 Respiratory Rate 26 H 16 Blood Pressure 127/82 151/93 H Pulse Oximetry 98 99 96 05/24/21 21:35 05/24/21 21:50 05/24/21 22:00 Temperature Pulse Rate 89 84 83 Respiratory Rate 18 12 16 Blood Pressure 149/96 H 138/89 134/91 H Pulse Oximetry 97 97 97 05/24/21 22:19 05/25/21 00:00 05/25/21 08:40 Temperature 36.1 C L 36.2 C L Pulse Rate 85 84 82 Re
[2021-05-25 14:00] VITALS: BP 108/62; PULSE 81; RESP 16; TEMP 36.6; O2SAT 98
--- NOTE | 2021-05-25 15:30 | P.DS_ITS ---
DS: Admitting Diagnosis Admitting Diagnosis Hematuria, urinary retention DS: Discharge Diagnosis Discharge Diagnosis (1) Hematuria: Qualifiers: Hematuria type: unspecified type Qualified Code(s): R31.9 - Hematuria, unspecified Code(s): R31.9 - Hematuria, unspecified Status: Acute Assessment and Plan: presented with urinary retention and findings of clot retention on CT abdomen/pelvis * Seen in consultation by urology * Status post cystoscopy with transurethral resection of large bladder tumor and clot evacuation per Dr. Bahena. * Started on CBI after procedure with resolution of hematuria * D/c home with Man and will see urology outpatient in 1 week for voiding trial and pathology review * Brilinta discontinued given higher risk for bleeding and transitioned to plavix per cardiology recommendations (2) Bladder tumor: Code(s): D49.4 - Neoplasm of unspecified behavior of bladder Status: Acute Assessment and Plan: Status post TURBT. * Pathology pending. Outpatient urology follow up with Dr. Bahena (3) Coronary artery disease: Code(s): I25.10 - Atherosclerotic heart disease of [place] coronary artery without angina pectoris Status: Acute Assessment and Plan: Recently hospitalized with NSTEMI April 2021 * Status post drug-eluting stent to circumflex x2 on 04/21/2021. * Seen in consultation by cardiology. * Brilinta discontinued * Plavix initiated. Will start 300 mg loading dose plavix on night of discharge, then 75 mg daily * Continue aspirin, statin, beta josé miguel (4) Hypertension: Code(s): I10 - Essential (primary) hypertension Status: Acute Assessment and Plan: Blood pressures were reviewed and they were reasonably well controlled. * Continue antihypertensive regimen (5) Acute urinary retention: Code(s): R33.8 - Other retention of urine Status: Acute Assessment and Plan: Secondary to above. * Status post clot evacuation. * Continue man (6) Tobacco abuse: Code(s): Z72.0 - Tobacco use Status: Chronic Assessment and Plan: Smoking cessation is imperative in was discussed. (7) New onset type 2 diabetes mellitus: Code(s): E11.9 - Type 2 diabetes mellitus without complications Status: Acute Assessment and Plan: Noted to have elevated fasting glucose * A1c evaluated and found to be elevated at 8.3, consistent with DM diagnosis * Started on metformin 500 mg BID * Educated on glucose monitoring. Will need to monitor ACHS and review glucose trends with PCP * I called his PCP office to inform them of this new diagnosis * Given cardiac comorbidities, he may benefit from Jardiance. Will need to follow with PCP for authorization/insurance coverage due to cifuentes DS: Summary Hospital Course Hospital Course: date of admission: 05/24/2021 date of discharge: 05/25/2021 Angel Lopez is a 62-year-old male smoker with CAD and recent stent placement on 04/13/2021 who presented to the emergency department on 05/24/2021 with complaints of urinary retention. upon presentation to the ED, his blood pressure was elevated at 170/100 with additional vital signs stable, CBC and BMP unremarkable with random glucose 179, UA with 3+ blood, and CT a/p showed a likely blood clot in the bladder. he was admitted to the hospitalist service for further evaluation and management and seen in consultation by Urology. Please see above for fur
--- NOTE | 2021-05-25 15:30 | PM.DS ---
DS: Admitting Diagnosis Admitting Diagnosis Hematuria, urinary retention DS: Discharge Diagnosis Discharge Diagnosis (1) Hematuria: Qualifiers: Hematuria type: unspecified type Qualified Code(s): R31.9 - Hematuria, unspecified Code(s): R31.9 - Hematuria, unspecified Status: Acute Assessment and Plan: presented with urinary retention and findings of clot retention on CT abdomen/pelvis Seen in consultation by urology Status post cystoscopy with transurethral resection of large bladder tumor and clot evacuation per Dr. Bahena. Started on CBI after procedure with resolution of hematuria D/c home with Man and will see urology outpatient in 1 week for voiding trial and pathology review Brilinta discontinued given higher risk for bleeding and transitioned to plavix per cardiology recommendations (2) Bladder tumor: Code(s): D49.4 - Neoplasm of unspecified behavior of bladder Status: Acute Assessment and Plan: Status post TURBT. Pathology pending. Outpatient urology follow up with Dr. Bahena (3) Coronary artery disease: Code(s): I25.10 - Atherosclerotic heart disease of [place] coronary artery without angina pectoris Status: Acute Assessment and Plan: Recently hospitalized with NSTEMI April 2021 Status post drug-eluting stent to circumflex x2 on 04/21/2021. Seen in consultation by cardiology. Brilinta discontinued Plavix initiated. Will start 300 mg loading dose plavix on night of discharge, then 75 mg daily Continue aspirin, statin, beta josé miguel (4) Hypertension: Code(s): I10 - Essential (primary) hypertension Status: Acute Assessment and Plan: Blood pressures were reviewed and they were reasonably well controlled. Continue antihypertensive regimen (5) Acute urinary retention: Code(s): R33.8 - Other retention of urine Status: Acute Assessment and Plan: Secondary to above. Status post clot evacuation. Continue man (6) Tobacco abuse: Code(s): Z72.0 - Tobacco use Status: Chronic Assessment and Plan: Smoking cessation is imperative in was discussed. (7) New onset type 2 diabetes mellitus: Code(s): E11.9 - Type 2 diabetes mellitus without complications Status: Acute Assessment and Plan: Noted to have elevated fasting glucose A1c evaluated and found to be elevated at 8.3, consistent with DM diagnosis Started on metformin 500 mg BID Educated on glucose monitoring. Will need to monitor ACHS and review glucose trends with PCP I called his PCP office to inform them of this new diagnosis Given cardiac comorbidities, he may benefit from Jardiance. Will need to follow with PCP for authorization/insurance coverage due to cifuentes DS: Summary Hospital Course Hospital Course: date of admission: 05/24/2021 date of discharge: 05/25/2021 Angel Lopez is a 62-year-old male smoker with CAD and recent stent placement on 04/13/2021 who presented to the emergency department on 05/24/2021 with complaints of urinary retention. upon presentation to the ED, his blood pressure was elevated at 170/100 with additional vital signs stable, CBC and BMP unremarkable with random glucose 179, UA with 3+ blood, and CT a/p showed a likely blood clot in the bladder. he was admitted to the hospitalist service for further evaluation and management and seen in consultation by Urology. Please see above for further details. Underwent TURBT and hematuria improved with CBI. He will follow-up with urology as an outpatient within the week. He was educated her to monitor his blood sugars at home. He was feeling much better and was very eager for discharge home. Given his overall improvement, he was determined to no longer require inpatient care and was felt to be stable for discharge. We discussed worrisome signs and symptoms for which to return and he was educate
[2021-05-25 15:34] LABS: Glucose Point of Care 234 mg/dl (65-105)
== END 2021-05-25 17:12 | disposition home or self-care (01) | DRG 669 ==
LOC: ANHED 18:29 → ANH2MED 05-25 01:04
PROVIDERS: Emergency Medicine; Physician Assistant; Urology; Admitting Provider Internal Medicine; Emergency Provider Emergency Medicine; PCP Internal Medicine; Visit Provider Physician Assistant
PROC: 0TCB8ZZ Extirpation of Matter from Bladder, Via Natural or Artificial Opening Endoscopic (ICD-10-PCS; CPT 52001; principal; 2021-05-24 19:30)
DX: D49.4 Neoplasm of unspecified behavior of bladder (principal); N39.0 Urinary tract infection, site not specified; I48.91 Unspecified atrial fibrillation; F17.210 Nicotine dependence, cigarettes, uncomplicated; R31.9 Hematuria, unspecified; I25.2 Old myocardial infarction; T83.098A Other mechanical complication of other urinary catheter, initial encounter; Y84.6 Urinary catheterization as the cause of abnormal reaction of the patient, or of later complication, without mention of misadventure at the time of the procedure; Y92.538 Other ambulatory health services establishments as the place of occurrence of the external cause; Z95.5 Presence of coronary angioplasty implant and graft; Z79.82 Long term (current) use of aspirin; F10.21 Alcohol dependence, in remission; I25.10 Atherosclerotic heart disease of native coronary artery without angina pectoris; I10 Essential (primary) hypertension; E11.65 Type 2 diabetes mellitus with hyperglycemia
CPT/HCPCS: 36415; 74177; 80048; 80053; 81001; 82948; 83036; 85025; 87086; 88305; 96365; 99285; A9270; C1758; J0696; J1100; J2370; J2405; J2704; J3010; J7120; Q9967

== ENCOUNTER 2023-04-26 07:05 | Emergency (ER) | payer BC, SELFPAY ==
[2023-04-26 07:22] VITALS: BP 172/92; PULSE 91; RESP 16; TEMP 36.2; O2SAT 99
[2023-04-26 08:53] VITALS: BP 150/89; PULSE 83; RESP 15; O2SAT 100
--- NOTE | 2023-04-26 09:13 | ED.GENADULT ---
HPI - General Adult General Chief complaint: Skin/Abscess/Foreign Body Stated complaint: Right flank pain Time Seen by Provider: 04/26/23 08:53 Source: patient Mode of arrival: ambulatory Limitations: no limitations History of Present Illness HPI narrative: This is a 63-year-old male who presents to the ED with chief complaint of right sided rash and flank pain for the past week. Patient actually states that the pain has been going on for 5 to 6 days and the rash erupted 2 nights ago. Reports blistering lesions to the right trunk and flank. States he was supposed to have his pneumonia and Shingrix shots a while back but never got these. Denies any fevers, chills, other complaints. Related Data Allergies Allergy/AdvReac Type Severity Reaction Status Date / Time No Known Allergies Allergy Verified 04/26/23 08:54 [facility] Past Medical History Medical History Acute non-ST elevation myocardial infarction (NSTEMI) (04/19/21) Coronary artery disease Hypertension Paroxysmal atrial fibrillation Tobacco abuse Surgical History Surgical History History of cardiac catheterization (04/21/21) Drug-eluting stent x2 to the circumflex. History of removal of cyst Excision Pilar cyst. History of tracheostomy (1989) Related to critical illness due to dental abscess. Family History Family History Mother Cancer Father Cancer Malignant neoplasm of prostate Social History Social History (Updated 05/25/21 @ 01:48 by Vickie Cheney PA-C) Social History: The patient lives in [place]. He is and has 2 children. 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 He Has smoked a pack of cigarettes per day for nearly 40 years but is down to about half a pack since his stents were placed in April 2021. Recovering alcoholic, sober for over 2 decades. No illicit substance use. Code status: Full code. Exam Narrative: GENERAL: Well-appearing, well-nourished, and in no acute distress. HEAD: Normocephalic, atraumatic. EYES: PERRLA and EOMI. ENT: Nares clear, no rhinorrhea or epistaxis. Mucous membranes moist. Oropharynx without tonsillar hypertrophy exudate or other lesions. NECK: Supple. No adenopathy or masses. CHEST: No respiratory distress. Clear to auscultation. No wheezes rales or rhonchi HEART: Regular rate and rhythm. No murmur heard. Normal peripheral pulses. ABDOMEN: Soft, nontender, nondistended, normal active bowel sounds. MSK: Normal range of motion. No edema. SKIN: Vesicular rash in dermatomal pattern on the right mid thorax. Scattered lesions on the back/ Right flank as well. Minimal tenderness. No open lesions. NEURO: Alert and oriented x3. No focal deficits. PSYCH: Normal mood and affect. Course Vital Signs Vital signs: Vital Signs Temperature 97.1 F L 04/26/23 07:22 Pulse Rate 91 04/26/23 07:22 Respiratory Rate 16 04/26/23 07:22 Blood Pressure 172/92 H 04/26/23 07:22 Pulse Oximetry 99 04/26/23 07:22 Oxygen Delivery Room Air 04/26/23 07:22 Temperature 97.1 F L 04/26/23 07:22 Pulse Rate 77 04/26/23 09:34 Respiratory Rate 18 04/26/23 09:34 Blood Pressure 156/106 H 04/26/23 09:34 Pulse Oximetry 99 04/26/23 09:34 Oxygen Delivery Room Air 04/26/23 08:53 Medical Decision Making MDM Narrative Medical decision making narrative: This is a 63-year-old male who presents to the ED with chief complaint of vesicular rash to the right flank and trunk. Vitals are normal. Exam does show a vesicular rash in a dermatomal pattern consistent with uncomplicated shingles to herpes zoster. He is probably outside the window for valacyclovir but the skin eruption happened 2 days ago so a prescription was sent. Supportive measures for home discussed. Return precautions given. He is stable for discharge. Patient is understanding and agreeab
[2023-04-26 09:34] VITALS: BP 156/106; PULSE 77; RESP 18; O2SAT 99
== END 2023-04-26 09:36 | disposition home or self-care (01) ==
PROVIDERS: Emergency Provider Physician Assistant; PCP Internal Medicine
DX: B02.9 Zoster without complications (principal); I25.10 Atherosclerotic heart disease of native coronary artery without angina pectoris; I10 Essential (primary) hypertension; I25.2 Old myocardial infarction; I48.0 Paroxysmal atrial fibrillation; F17.210 Nicotine dependence, cigarettes, uncomplicated
CPT/HCPCS: 99283